=== PATIENT | male | born 1960 | race Caucasian/White ===

== ENCOUNTER → 2019-08-12 | Outpatient (CLI) | payer BC ==
[2019-08-12 11:30] LABS: HEMOGLOBIN A1C 8.7 % (4.3-5.7)
[2019-08-12 11:37] LABS: CHLORIDE,CL 102 mmol/L (98-107); SODIUM,NA 140 mmol/L (136-145)
== END ==
LOC: LL.LAB 11:04
PROVIDERS: ATTEND Family Medicine
DX: Z48.22 Encounter for aftercare following kidney transplant (principal); E11.9 Type 2 diabetes mellitus without complications
CPT/HCPCS: 36415; 80053; 80197; 81001; 83036; 85025; 85652